=== PATIENT | female | born 1975 | race Caucasian/White ===

== ENCOUNTER 2023-06-25 10:43 | Outpatient (CLI) | payer OTHER, SELFPAY ==
--- NOTE | ~2023-06-25 | US_ITS ---
Renal-Bladder ultrasound Clinical History: Chronic kidney disease Technique: Real-time sonographic imaging of the kidneys and urinary bladder was performed. Findings: The right kidney measures 8.7 cm in length and the left kidney measures 10.7 cm. There is n o hydronephrosis or renal calculus identified. Renal cortical echogenicity is within normal limits. N o renal mass lesion is identified. The urinary bladder is moderately distended at the time of this exam. No intraluminal echoes are iden tified. No abnormal wall thickening is seen. Impression: Unremarkable ultrasound of the kidneys and urinary bladder. Reviewed, dictated and finalized at location M. Impression: Unremarkable ultrasound of the kidneys and urinary bladder.
== END 2023-06-25 10:44 ==
LOC: GOSHIMG 10:45
PROVIDERS: PCP Family Medicine; Visit Provider Family Medicine
DX: N18.30 Chronic kidney disease, stage 3 unspecified (principal)
CPT/HCPCS: 76775

== ENCOUNTER → 2023-08-28 08:23 | Outpatient (REF) | payer OTHER, SELFPAY | LOC: ANHLAB 08:23 | PROVIDERS: PCP Family Medicine; Visit Provider Plastic Surgery | DX: C44.519 Basal cell carcinoma of skin of other part of trunk (principal) | CPT/HCPCS: 88305 ==

== ENCOUNTER 2024-01-23 12:26 | Outpatient (CLI) | payer OTHER, SELFPAY ==
--- NOTE | ~2024-01-23 | MM_ITS ---
EXAMINATION: MM screening dorothea BI w maddy HISTORY: Screening TECHNIQUE: Craniocaudal and mediolateral oblique 3-D tomosynthesis images were obtained and synthetic 2-D images were generated. CAD analysis was submitted and interpreted. COMPARISON: 04/19/2017 BREAST PARENCHYMAL COMPOSITION: Dense: The breasts are extremely dense, which lowers the sensitivity of mammography. FINDINGS: There is no evidence of suspicious mass, calcification, or architectural distortion to sugg est malignancy in either breast. There has been no suspicious interval change. IMPRESSION: 1. No mammographic evidence of malignancy. 2. Recommend routine screening mammography in one year. BI-RADS Category 1: Negative Reviewed, dictated and finalized at location B. [employer]
== END 2024-01-23 12:27 | disposition home or self-care (01) ==
LOC: MICIMG 12:27
PROVIDERS: PCP Family Medicine; Visit Provider Nurse Practitioner Family
DX: Z12.31 Encounter for screening mammogram for malignant neoplasm of breast (principal)
CPT/HCPCS: 77063; 77067

== ENCOUNTER 2024-12-10 00:17 | Observation (INO) | payer OTHER, SELFPAY ==
[2024-12-10] VITALS (23 sets, daily range): BP systolic 87–121; BP diastolic 53–83; PULSE 68–117; RESP 16–20; TEMP 36.3–37.3; O2SAT 96–100; BMI 24.1
--- NOTE | ~2024-12-10 | CT_ITS ---
EXAMINATION: CT abdomen pelvis w con DATE: 12/10/2024 03:06 INDICATION: Left flank pain. Urinary tract infection. Fever. TECHNIQUE: Computed tomography (CT) of the abdomen and pelvis was performed with 100 mL Omnipaque 350 intravenous contrast. Automated exposure control and iterative reconstruction technique were employed. The dose-length product was 328.61 mGy-cm. COMPARISON: CT abdomen and pelvis 12/31/2012 FINDINGS: The visualized portions of the lung bases demonstrate mild atelectasis. No pleural effusion. The heart size is normal. No pericardial effusion. The liver, gallbladder, spleen, pancreas, adrenal glands, and right kidney are normal. There is a subtle striated nephrogram of left kidney. There is urothelial thickening in left renal pelvis. These findings are consistent with pyelonephritis. There are no dilated loops of bowel. There is a large volume of stool in the colon. The appendix is normal. There are no pathologically enlarged lymph nodes. There is no free intraperitoneal fluid. There is mild thoracic and lumbar spondylosis. IMPRESSION: 1. Left-sided pyelonephritis. Reviewed, dictated and finalized at location E. DEVELOPER
--- NOTE | 2024-12-10 01:47 | ECG_ITS ---
Test Date: 2024-12-10 03:55:17 Measurements Intervals Todd Rate: 80 P: 75 FL: 144 QRS: 8 QRSD: 87 T: 43 QT: 373 QTc: 430 Interpretive Statements SINUS RHYTHM POSSIBLE LEFT ATRIAL ENLARGEMENT [-0.1mV P-WAVE IN V1/V2] SEPTAL MYOCARDIAL INFARCTION , PROBABLY OLD [40+ ms Q WAVE IN V1/V2] No previous ECG available for comparison Electronically Signed On 12-10-2024 06:38:37 FAMILY DENTIST by Misty Dominguez M.D.
--- NOTE | 2024-12-10 01:49 | ED.ABDPAIN ---
HPI - Abdominal Pain General Chief Complaint: Nausea/Vomiting/Diarrhea <Ange Bergeron APRN - Last Filed: 12/10/24 03:50> Stated Complaint: UTI, fever, n/v <Ange Bergeron APRN - Last Filed: 12/10/24 03:50> Time Seen by Provider: 12/10/24 01:18 <Ange Bergeron APRN - Last Filed: 12/10/24 03:50> History of Present Illness HPI narrative: Patient is a 49-year-old female who presents to the ER with left flank pain, emesis, chills/sweats, and a urinary tract infection that was diagnosed yesterday. She reports she was placed on Keflex, but has only taken 1 dose. Patient reports she was woken in her sleep due to chills and sweating. She reports she does not have a thermometer at home but believes she had a fever. Patient denies any hematuria, chest pain, shortness of breath. 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 <Ange Bergeron APRN - Last Filed: 12/10/24 03:50> Related Data Home Medications: Home Medications ?Medication ?Instructions ?Recorded ?Confirmed ?Last Taken ?Type spironolactone 50 mg tablet 50 mg PO DAILY 05/29/22 04/15/24 Unknown History <Ange Bergeron APRN - Last Filed: 12/10/24 03:50> Allergies/Adverse Reactions: Allergies Allergy/AdvReac Type Severity Reaction Status Date / Time No Known Allergies Allergy Verified 12/10/24 05:30 <Ange Bergeron APRN - Last Filed: 12/10/24 03:50> Review of Systems Review of Systems: All systems reviewed & are unremarkable except as noted in HPI and below <Ange Bergeron APRN - Last Filed: 12/10/24 03:50> PMFSH Past Medical History Medical History: Medical History Seroma, post-traumatic Mass of left axilla Left axillary pain History of melanoma Costochondritis Acquired deformity of left upper arm <Ange Bergeron APRN - Last Filed: 12/10/24 03:50> Surgical History Surgical History: Surgical History Hx of melanoma excision <Ange Bergeron APRN - Last Filed: 12/10/24 03:50> Family History Family History: Family History Mother Family history of neuropathy Depression Father Hypertension Grandparent Lung cancer Heart disease Cerebrovascular accident Grandparent Lung cancer Cerebrovascular accident <Ange Bergeron APRN - Last Filed: 12/10/24 03:50> Social History Social History: Social History Social History: Caffeine-daily Alcohol intake: current Alcohol use details: once monthly Substance use: never Substance use type: does not use Do You Feel Safe in your Home?: Yes Lack of Transportation: No Lack of Food: Never True Current Housing: I Have Housing Concerned About Future Housing: No Difficulty Paying Gas/Electric Bills: No Difficulty Paying for Meds: No Currently Unemployed: No Education: Master's Degree or Higher Difficulty w/ Childcare or Family Care: No <Ange Bergeron APRN - Last Filed: 12/10/24 03:50> Exam Narrative: GENERAL: Ill appearing, well-nourished, clammy and warm to the touch HEAD: Normocephalic, atraumatic. NECK: Supple. No adenopathy, no masses. RESPIRATORY: Airway patent, respirations nonlabored. Clear to auscultation bilaterally, no rales, rhonchi, wheezing. CARDIOVASCULAR: Regular rate and rhythm without murmurs, rubs, or gallops. Peripheral pulses 2+ and equal bilaterally. + CVA tenderness ABDOMINAL: Soft, left lower quadrant tenderness with palpation, nondistended, no hepatosplenomegaly. Normoactive BS. MUSCULOSKELETAL: Moves all extremities. Strength/ROM intact without gross deformities. SKIN: Hot, sweaty, normal color. No rashes. NEURO: A&O X3. Speech clear. Cranial nerves II-XII intact. No ataxic movements. PSYCHIATRIC: Appropriate mood and affect. Normal interaction. <Ange Bergeron, POLE FRAMER MACHINE - Last Filed: 12/10/24 03:50> Course Course Emergency Course: ZYCH: CT Imaging delayed via Stat Rad. Official read will occur in the morning. This will be followed by the admitting service. <Matt Cuello MD - Last Filed: 12/10/24 05:31> Vital Signs Vital signs: Vital Signs Temperature 99.2 F 12/10/24 00:33 Pulse Rate 117 H 12/10/24 00:33 Respiratory Rate 17 12/10/24 00:33 Blood Pressure 110/53 L 12/10/24 00:33 Pulse Oximetry 96 12/10/24 00:33 Oxygen Delivery Room Air 12/10/24 00:33 Temperature 98.2 F 12/10/24 02:57 Pulse Rate 82 12/10/24 05:09 Respiratory Rate 16 12/10/24 05:09 Blood Pressure 105/83 12/10/24 05:09 Pulse Oximetry 99 12/10/24 05:09 Oxygen Delivery Room Air 12/10/24 00:33 <Ange Bergeron, POLE FRAMER MACHINE - Last Filed: 12/10/24 03:50> Vital Signs Temperature 99.2 F 12/10/24 00:33 Pulse Rate 117 H 12/10/24 00:33 Respiratory Rate 17 12/10/24 00:33 Blood Pressure 110/53 L 12/10/24 00:33 Pulse Oximetry 96 12/10/24 00:33 Oxygen Delivery Room Air 12/10/24 00:33 Temperature 98.2 F 12/10/24 02:57 Pulse Rate 82 12/10/24 05:09 Respiratory Rate 16 12/10/24 05:09 Blood Pressure 105/83 12/10/24 05:09 Pulse Oximetry 99 12/10/24 05:09 Oxygen Delivery Room Air 12/10/24 00:33 <Matt Cuello MD - Last Filed: 12/10/24 05:31> MDM - Abdominal Pain MDM Narrative Medical decision making narrative: Patient is a 49-year-old female who presents to the ER with left flank pain, emesis, chills/sweats, and a urinary tract infection that was diagnosed yesterday. She reports she was placed on Keflex, but has only taken 1 dose. Patient reports she was woken in her sleep due to chills and sweating. She reports she does not have a thermometer at home but believes she had a fever. Patient denies any hematuria, chest pain, shortness of breath. She endorses a history of melanoma, basal cell carcinoma, and [place] syndrome for which she takes Duponex. Labs Ordered: CBC, CMP, lactic acid, PTT, INR, CRP, blood culture, UA, lipase Imaging Ordered: CT abdomen pelvis with contrast Medications Ordered: 2 L normal saline IV bolus, Zofran 4 mg IV, ceftriaxone IV MDM: Results of imaging and lab work shared with patient and her family. It was advised patient be admitted to the hospital for further evaluation and treatment. Patient and her family verbalized understanding and are in agreement with plan. CRITICAL CARE ADDENDUM: Indication: Rule out sepsis Time type: intermittent I provided a total of 35 minutes of critical care excluding separately billable procedures. This includes time w/ EMS, initial bedside evaluation, reviewing old records, review of testing done while under my care, discussion w/ the family, nurses, client insights consultant and guiding the patient?s care while in the emergency department. 0315- Spoke with hospitalist, Syl Maradiaga NP, who was in agreement with plan for admission pending pt's CT scan. 0330- Care signed out to Dr. Cuello pending CT scan results. <Ange Bergeron, POLE FRAMER MACHINE - Last Filed: 12/10/24 03:50> Differential Diagnosis Differential diagnosis: Likely abdominal pain, calculus of kidney, endometriosis and other (Pyelonephritis) <Ange Bergeron APRN - Last Filed: 12/10/24 03:50> Lab Data Attestation: I reviewed the patient's lab results. <Ange Bergeron APRN - Last Filed: 12/10/24 03:50> Result diagrams: 12/10/24 02:23 12/10/24 02:23 <Ange Bergeron APRN - Last Filed: 12/10/24 03:50> Labs: Lab Results 12/10/24 Range/Units 02:23 WBC 14.7 H (4.5-10.0) K/mm3 RBC 4.00 L (4.2-5.4) M/mm3 Hgb 12.7 (12.0-15.0) g/dL Hct 37.7 (37.0-47.0) % MCV 94.3 (80-100) fl MCH 31.8 (26-34) pg MCHC 33.7 (32-36) g/dl RDW 12.6 (11.5-14.5) % Plt Count 155 (150-375) k/mm3 MPV 11.8 H (7.4-10.4) fl Immature Gran % (Auto) Not Reportable Neut % (Auto) Not Reportable Lymph % (Auto) Not Reportable [place] % (Auto) Not Reportable Eos % (Auto) Not Reportable Baso % (Auto) Not Reportable Lymph # (Auto) Not Reportable [place] # (Auto) Not Reportable Eos # (Auto) Not Reportable Baso # (Auto) Not Reportable Abs Immat Gran (auto) Not Reportable Absolute Neuts (auto) Not Reportable Absolute Nucleated RBC Not Reportable Total Counted 100 Neutrophils % (Manual) 81 H (46-73) % Band Neutrophils % 7 H (0-6) % Lymphocytes % (Manual) 3 L (18-44) % Monocytes % (Manual) 9 (3-9) % Nucleated RBC % Not Reportable Abs Neuts (Manual) 12.93 H (1.3-6.7) K/mm3 Abs Lymphs (Manual) 0.44 L (1.1-4.5) K/mm3 Abs Monocytes (Manual) 1.32 H (0.1-0.90) K/mm3 Platelet Estimate Adequate (Adequate) Schistocytes None seen PT 13.3 (11.1-14.7) Seconds INR 1.0 APTT 30.5 (22.3-36.8) Seconds Sodium 135 L (137-145) mmol/L Potassium 4.0 (3.4-5.0) mmol/L Chloride 102 (98-107) mmol/L Carbon Dioxide 27 (22-30) mmol/L Anion Gap 6 (4-12) mmol/L BUN 22 H (7-17) mg/dL Creatinine 0.96 (0.7-1.0) mg/dL Estim Creat Clear Calc 63 ml/min Estimated GFR > 60 (59 - ) Glucose 109 (65-110) mg/dL Lactic Acid 0.7 (0.7-2.0) mmol/L Calcium 8.7 (8.4-10.2) mg/dL Total Bilirubin 1.0 (0.2-1.3) mg/dL AST 37 H (14-36) U/L ALT 34 (6-35) U/L Alkaline Phosphatase 42 (38-126) U/L C-Reactive Protein 5.6 H (<1.0) mg/dL Total Protein 6.9 (6.3-8.2) g/dL Albumin 4.0 (3.5-5.1) g/dL Lipase 82 (23-300) U/L Urine Color Yellow (Yellow) Urine Appearance Cloudy H (Clear) Urine pH 5.5 (5.0-9.0) Ur Specific [place] 1.019 (1.001-1.035) Urine Protein 1+ H (Negative) mg/dL Urine Glucose (UA) Negative (Negative) mg/dL Urine Ketones Negative (Negative) mg/dL Ur Blood (Man) 2+ H (Negative) Urine Nitrate Negative (Negative) Urine Bilirubin Negative (Negative) Urine Urobilinogen 1.0 (<2.0) mg/dL Leukocyte Esterase Rfl 3+ H (Negative) MIKE/UL Urine RBC 11-20 H (0-2) /hpf Urine WBC >100 H (0-3) /hpf Ur Squamous Epith Cells Moderate (Few) /hpf Urine Bacteria 1+ H /hpf Urine Casts 0-2 <Ange Bergeron, POLE FRAMER MACHINE - Last Filed: 12/10/24 03:50> Lab Results 12/10/24 Range/Units 02:23 WBC 14.7 H (4.5-10.0) K/mm3 RBC 4.00 L (4.2-5.4) M/mm3 Hgb 12.7 (12.0-15.0) g/dL Hct 37.7 (37.0-47.0) % MCV 94.3 (80-100) fl MCH 31.8 (26-34) pg MCHC 33.7 (32-36) g/dl RDW 12.6 (11.5-14.5) % Plt Count 155 (150-375) k/mm3 MPV 11.8 H (7.4-10.4) fl Immature Gran % (Auto) Not Reportable Neut % (Auto) Not Reportable Lymph % (Auto) Not Reportable [place] % (Auto) Not Reportable Eos % (Auto) Not Reportable Baso % (Auto) Not Reportable Lymph # (Auto) Not Reportable [place] # (Auto) Not Reportable Eos # (Auto) Not Reportable Baso # (Auto) Not Reportable Abs Immat Gran (auto) Not Reportable Absolute Neuts (auto) Not Reportable Absolute Nucleated RBC Not Reportable Total Counted 100 Neutrophils % (Manual) 81 H (46-73) % Band Neutrophils % 7 H (0-6) % Lymphocytes % (Manual) 3 L (18-44) % Monocytes % (Manual) 9 (3-9) % Nucleated RBC % Not Reportable Abs Neuts (Manual) 12.93 H (1.3-6.7) K/mm3 Abs Lymphs (Manual) 0.44 L (1.1-4.5) K/mm3 Abs Monocytes (Manual) 1.32 H (0.1-0.90) K/mm3 Platelet Estimate Adequate (Adequate) Schistocytes None seen PT 13.3 (11.1-14.7) Seconds INR 1.0 APTT 30.5 (22.3-36.8) Seconds Sodium 135 L (137-145) mmol/L Potassium 4.0 (3.4-5.0) mmol/L Chloride 102 (98-107) mmol/L Carbon Dioxide 27 (22-30) mmol/L Anion Gap 6 (4-12) mmol/L BUN 22 H (7-17) mg/dL Creatinine 0.96 (0.7-1.0) mg/dL Estim Creat Clear Calc 63 ml/min Estimated GFR > 60 (59 - ) Glucose 109 (65-110) mg/dL Lactic Acid 0.7 (0.7-2.0) mmol/L Calcium 8.7 (8.4-10.2) mg/dL Total Bilirubin 1.0 (0.2-1.3) mg/dL AST 37 H (14-36) U/L ALT 34 (6-35) U/L Alkaline Phosphatase 42 (38-126) U/L C-Reactive Protein 5.6 H (<1.0) mg/dL Total Protein 6.9 (6.3-8.2) g/dL Albumin 4.0 (3.5-5.1) g/dL Lipase 82 (23-300) U/L Urine Color Yellow (Yellow) Urine Appearance Cloudy H (Clear) Urine pH 5.5 (5.0-9.0) Ur Specific [place] 1.019 (1.001-1.035) Urine Protein 1+ H (Negative) mg/dL Urine Glucose (UA) Negative (Negative) mg/dL Urine Ketones Negative (Negative) mg/dL Ur Blood (Man) 2+ H (Negative) Urine Nitrate Negative (Negative) Urine Bilirubin Negative (Negative) Urine Urobilinogen 1.0 (<2.0) mg/dL Leukocyte Esterase Rfl 3+ H (Negative) MIKE/UL Urine RBC 11-20 H (0-2) /hpf Urine WBC >100 H (0-3) /hpf Ur Squamous Epith Cells Moderate (Few) /hpf Urine Bacteria 1+ H /hpf Urine Casts 0-2 <Matt Cuello MD - Last Filed: 12/10/24 05:31> Discharge Plan Discharge Clinical Impression: Pyelonephritis, Urinary tract infection <Ange Bergeron APRN - Last Filed: 12/10/24 03:50> Patient Disposition: Still a Patient <Ange eBrgeron APRN - Last Filed: 12/10/24 03:50> Condition: Stable <Ange Bergeron APRN - Last Filed: 12/10/24 03:50>
[2024-12-10 02:33] LABS: Hematocrit 37.7 % (37.0-47.0); Hemoglobin 12.7 g/dL (12.0-15.0); Mean Corpuscular HGB Conc 33.7 g/dl (32-36); Mean Corpuscular Hemoglobin 31.8 pg (26-34); Mean Corpuscular Volume 94.3 fl (80-100); Platelet Count Result 155 k/mm3 (150-375); Red Blood Count 4.00 M/mm3 (4.2-5.4); White Blood Count 14.7 K/mm3 (4.5-10.0)
[2024-12-10] MEDS: SODIUM CHLORIDE 0.9% IV 1,000 ML 999 ML IV CONT ×3 (02:38→03:50)
[2024-12-10] MEDS: ONDANSETRON INJ 4 MG/2 ML VIAL IV PUSH (02:38)
[2024-12-10 02:39] LABS: Add Urine Microscopic? YES; Appearance Urine Cloudy (Clear); Glucose Urine UA Negative (Negative); Leukocyte Esterase Ur 3+ LEU/UL (Negative); Nitrate Urine Negative (Negative); Non Pathogenic Casts 0-2; Specific Grav Ur 1.019 (1.001-1.035)
[2024-12-10 02:41] LABS: Alanine Aminotransferase 34 U/L (6-35); Albumin Level 4.0 g/dL (3.5-5.1); Alkaline Phosphatase 42 U/L (38-126); Anion Gap 6 mmol/L (4-12); Aspartate Amino Transferase 37 U/L (14-36); Bilirubin,Total 1.0 mg/dL (0.2-1.3); Blood Urea Nitrogen 22 mg/dL (7-17); Calcium 8.7 mg/dL (8.4-10.2); Carbon Dioxide 27 mmol/L (22-30); Chloride 102 mmol/L (98-107); Estimated CRCL calculation 63 ml/min; Estimated Glomerular Filt Rate > 60; Glucose 109 mg/dL (65-110); Lipase 82 U/L (23-300); Potassium 4.0 mmol/L (3.4-5.0); Sodium 135 mmol/L (137-145); Total Protein 6.9 g/dL (6.3-8.2)
[2024-12-10 02:58] LABS: Band Neutrophils Percent 7 % (0-6); Lymphocytes Absolute Manual 0.44 K/mm3 (1.1-4.5); Lymphocytes Percent Manual 3 % (18-44); Total Cells Counted 100
[2024-12-10 02:59] LABS: Monocytes Absolute Manual 1.32 K/mm3 (0.1-0.90); Monocytes Percent Manual 9 % (3-9); Neutrophils Absolute Manual 12.93 K/mm3 (1.3-6.7); Neutrophils Percent Manual 81 % (46-73); Schistocytes None Seen
[2024-12-10 03:07] LABS: CRP 5.6 mg/dL (<1.0)
[2024-12-10 03:17] LABS: INR 1.0; Prothrombin Time 13.3 Seconds (11.1-14.7)
[2024-12-10 03:18] LABS: Partial Thromboplastin Time 30.5 Seconds (22.3-36.8)
[2024-12-10] MEDS: cefTRIAXone 1 GM in SODIUM CHLORIDE 0.9% IV 50 ML 100 ML IVPB ×2 (03:45→17:41)
[2024-12-10] MEDS: SODIUM CHLORIDE 0.9% IV 200 ML 999 ML IV CONT (05:16)
--- NOTE | 2024-12-10 06:23 | P.HP_ITS ---
H&P: HPI History of Present Illness Date/Time: 12/10/24 06:23 Chief Complaint: Nausea vomiting diarrhea. Narrative: This is a 49-year-old female patient to came with left flank pain, chills, sweats, emesis and a urinary tract infection that was diagnosed a day before. The patient stated she was treated with Keflex been only was able to take 1 pill so far. The patient was awakened with chills and sweating as well as the left flank pain. She believes that she developed a fever. She denies any shortness of breath or hematuria. She has a history of Garcia syndrome of which he takes 2 Duponex. Her temperature was 99.2? at its highest. Blood pressure is soft at 105/83. Her pulse was 82. Her white count was noted to be 14.7. Her CRP was 5.6. She does have some CVA tenderness. Her urine was cloudy 1+ urine protein with 2+ blood, 3+ leukocyte esterase, rbc's 11-20, urine bacteria 1+, urine wbc's greater than 100. CT of the abdomen and pelvis with contrast was read as mild soft tissue stranding is seen surrounding left kidney with mild wall thickening of the left renal pelvis and ureter concerning for underlying infectious process without evidence of obstruction or stone. Severe colonic sto ol burden without evidence of obstruction. The patient was started on Rocephin. The patient is being admitted to observation status on the date of service of 12/10/2024 Review of Systems Constitutional: Constitutional: Reports as per HPI and Reports no additional constitutional complaints Eyes: Eyes: Reports as per HPI and Reports no additional eye complaints ENT: Reports no additional ear, nose, mouth, and throat complaints and Reports Normal hearing present Cardiovascular: Cardiovascular: Reports no additional cardiovascular complaints Respiratory: Respiratory: Reports as per HPI and Reports no additional respiratory complaints Gastrointestinal: Gastrointestinal: Reports as per HPI and Reports no additional gastrointestinal complaints Genitourinary: Genitourinary: Reports no additional female genitourinary complaints Musculoskeletal: Musculoskeletal: Reports no additional musculoskeletal complaints Integumentary/Breasts: Skin/Breast: Reports system reviewed and no additional complaints, except as docu Neurologic: Reports no additional neurologic complaints and Reports Normal hearing present Psychiatric: Psychiatric: Reports no additional psychiatric complaints and Reports as per HPI Hematologic/Lymphatic: Hematologic/Lymphatic: Reports no additional hematologic/lymphatic complaints Allergic/Immunologic: Allergic/Immunologic: Reports no additional allergic/immunologic complaints [facility], [facility] Past Medical History Medical History (Updated 12/10/24 @ 06:35 by Syl Maradiaga APRN) Adult acne Garcia's disease Seroma, post-traumatic Mass of left axilla Left axillary pain History of melanoma Costochondritis Acquired deformity of left upper arm Surgical History Surgical History Hx of melanoma excision Family History Family History Mother Depression Family history of neuropathy Father Hypertension History of quadruple bypass Grandparent Heart disease Lung cancer Cerebrovascular accident Grandparent Lung cancer Cerebrovascular accident Social History Social History (Updated 12/10/24 @ 06:30 by Syl Maradiaga APRN) Social History: Caffeine-daily. The patient is to worsen has 1 child. 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 Code status full code Smoking status: Never smoker Alcohol intake: never Alcohol use details: once monthly Substance use: never Substance use type: does not use Do You Feel Safe in your Home?: Yes Lack of Transportation: No Lack of Food: Never True Current Housing: I Have Housing Concerned About Future Housing: No Difficulty Paying Gas/Electric Bills: No Difficulty Paying for Meds: No Currently Unemployed: No Education: Master's Degree or Higher Difficulty w/ Childcare or Family Care: No Spiritual care concerns: Yes Meds Home Medications and Allergies Home Medications ?Medication ?Instructions ?Recorded ?Confirmed ?Type spironolactone 50 mg tablet 50 mg PO DAILY 05/29/22 History dupilumab 300 mg/2 mL subcutaneous 300 mg subcut .BIWE EKLY 12/10/24 12/10/24 History pen injector (Dupixent) Allergies Allergy/AdvReac Type Severity Reaction Status Date / Time No Known Allergies Allergy Verified 12/10/24 05:39 Vital Signs Vital Signs - 24 hr 12/10/24 00:33 12/10/24 01:29 12/10/24 01:30 Temperature 99.2 F Pulse Rate 117 H Respiratory Rate 17 Blood Pressure 110/53 L 106/59 L Pulse Oximetry 96 96 96 Oxygen Delivery Room Air 12/10/24 01:31 12/10/24 01:45 12/10/24 01:46 Temperature Pulse Rate Respiratory Rate Blood Pressure 121/62 Pulse Oximetry 96 96 96 Oxygen Delivery 12/10/24 02:10 12/10/24 02:15 12/10/24 02:16 Temperature Pulse Rate Respiratory Rate Blood Pressure 110/64 Pulse Oximetry 96 97 96 Oxygen Delivery 12/10/24 02:30 12/10/24 02:31 12/10/24 02:45 Temperature Pulse Rate Respiratory Rate Blood Pressure 114/65 Pulse Oximetry 96 97 97 Oxygen Delivery 12/10/24 02:57 12/10/24 03:11 12/10/24 03:12 Temperature 98.2 F Pulse Rate Respiratory Rate Blood Pressure 103/57 L Pulse Oximetry 98 98 Oxygen Delivery 12/10/24 03:15 12/10/24 03:30 12/10/24 03:45 Temperature Pulse Rate Respiratory Rate Blood Pressure Pulse Oximetry 98 99 100 Oxygen Delivery 12/10/24 03:46 12/10/24 05:09 Temperature Pulse Rate 82 Respiratory Rate 16 Blood Pressure 103/55 L 105/83 Pulse Oximetry 98 99 Oxygen Delivery Exam Const: General: cooperative, healthy appearing, comfortable, no acute distress, well developed, awake, Physically active, average body habitus and well nourished Nutritional Appearance: average body habitus and well nourished Orientation/consciousness: oriented to person, oriented to place, oriented to time and patient oriented x3 Limitations: no limitations HENMT: Head: normal to inspection, No palpable skull fracture present, normocephalic, atraumatic and abrasion Ears: hearing grossly normal bilaterally Eyes: General: appearance normal, both eyes and all related structures Alignment and Position: alignment normal Periorbital: periorbital findings normal Eyelids: eyelids normal Neck: Neck: normal visual inspection, full ROM and no lymphadenopathy Chest: Chest palpation & inspection: normal inspection of the chest Resp: Effort & Inspection: normal respiratory effort Cardio: Palpation: normal PMI Rate: regular rate Rhythm: regular rhythm Heart sounds: S1 normal heart sound present and S2 normal heart sound present Peripheral pulses: Peripheral pulses 2+ throughout GI: Inspection: normal to inspection Auscultation: normal bowel sounds Rectal Exam: deferred Back/Spine/Pelvis: Cervical Spine: cervical ROM normal Other: Left CVA tenderness Skin: General skin exam: normal color Lesions: no lesions Rashes: no rashes Trauma: no lacerations or abrasions Wounds: no wounds Hair: normal Nails: normal Neuro: General: oriented to person, oriented to place, oriented to time and patient oriented x3 Cognition (Neuro): normal cognition Speech: normal speech Gait exam (Neuro): Normal gait present Motor exam (neuro): 5/5 motor strength present throughout Sensory Exam: normal sensation Extrem: General: normal to inspection Right upper extremity: normal to inspection and shoulder/upper arm Left upper extremity: normal to inspection and shoulder/upper arm Right lower extremity: normal to inspection Left lower extremity: normal to inspection Psych: Appearance: grossly normal Mental Status: mental status grossly normal Speech and movement: Normal speech and movement present Affect: normal affect Attitude: cooperative Thought process: Normal thought process present Thought content: Yes Normal thought content present Insight: Good insight present (Psych) Judgement: Good judgement present (Psych) H&P: Results Labs Labs: Short CBC 12/10/24 Range/Units 02:23 WBC 14.7 H (4.5-10.0) K/mm3 Hgb 12.7 (12.0-15.0) g/dL Hct 37.7 (37.0-47.0) % Plt Count 155 (150-375) k/mm3 BMP 12/10/24 02:23 Sodium 135 L Potassium 4.0 Chloride 102 Carbon Dioxide 27 BUN 22 H Creatinine 0.96 Glucose 109 Calcium 8.7 Liver Function 12/10/24 Range/Units 02:23 Total Bilirubin 1.0 (0.2-1.3) mg/dL AST 37 H (14-36) U/L ALT 34 (6-35) U/L Alkaline Phosphatase 42 (38-126) U/L Albumin 4.0 (3.5-5.1) g/dL Urine 12/10/24 Range/Units 02:23 Urine Color Yellow (Yellow) Urine Appearance Cloudy H (Clear) Urine pH 5.5 (5.0-9.0) Ur Specific [place] 1.019 (1.001-1.035) Urine Protein 1+ H (Negative) mg/dL Urine Glucose (UA) Negative (Negative) mg/dL Imaging CT scan - abdomen: Radiologist's impression: Impressions Abdomen/Pelvis CT 12/10/24 07:24 IMPRESSION: 1. Left-sided pyelonephritis. Assessment and Plan Assessment and plan (1) Pyelonephritis: Code(s): N12 - Tubulo-interstitial nephritis, not specified as acute or chronic Status: Acute Assessment and Plan: -the patient does have left flank pain with CVA tenderness. -CT of the abdomen is highly suggestive of pyelonephritis. The patient stated that this is her 1st UTI. She does not have recurrent UTIs and should be susceptible to the usual antibiotics. -patient was started on Rocephin. - Her urine was cloudy 1+ urine protein with 2+ blood, 3+ leukocyte esterase, rbc's 11-20, urine bacteria 1+, urine wbc's greater than 100 -urine and blood cultures are pending. -highest reported temperature was 99.2?. -on her CBC her white count was noted to be 14.7. -daily CBC (2) Adult acne: Code(s): L70.9 - Acne, unspecified Status: Acute Assessment and Plan: -patient's Aldactone is currently on hold due to low blood pressure. 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 Quality VTE Prophylaxis VTE prophylaxis: pharmacologic ordered
--- NOTE | 2024-12-10 16:34 | P.PNIM_ITS ---
Progress Note: A&P Assessment and Plan (1) Pyelonephritis: Code(s): N12 - Tubulo-interstitial nephritis, not specified as acute or chronic Status: Acute Assessment and Plan: -the patient does have left flank pain with CVA tenderness. -CT of the abdomen is highly suggestive of pyelonephritis. The patient stated that this is her 1st UTI. She does not have recurrent UTIs and should be susceptible to the usual antibiotics. -patient was started on Rocephin. - Her urine was cloudy 1+ urine protein with 2+ blood, 3+ leukocyte esterase, rbc's 11-20, urine bacteria 1+, urine wbc's greater than 100 -urine and blood cultures are pending. -highest reported temperature was 99.2?. -on her CBC her white count was noted to be 14.7. -daily CBC (2) Adult acne: Code(s): L70.9 - Acne, unspecified Status: Acute Assessment and Plan: -patient's Aldactone is currently on hold due to low blood pressure. 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 Plan patient presented fever, dysuria and frequency for urination, her urine is strongly positive for UTI, and suspect patient has pyelonephritis, will increase ceftriaxone to 2g q daily, follow up on urine culture and further recommendation to follow. Subjective Date/time seen: 12/10/24 16:34 Interval history: Nausea vomiting diarrhea. Narrative: This is a 49-year-old female patient to came with left flank pain, chills, sweats, emesis and a urinary tract infection that was diagnosed a day before. The patient stated she was treated with Keflex been only was able to take 1 pill so far. The patient was awakened with chills and sweating as well as the left flank pain. She believes that she developed a fever. She denies any shortness of breath or hematuria. She has a history of [place] syndrome of which he takes 2 Duponex. Her temperature was 99.2? at its highest. Blood pressure is soft at 105/83. Her pulse was 82. Her white count was noted to be 14.7. Her CRP was 5.6. She does have some CVA tenderness. Her urine was cloudy 1+ urine protein with 2+ blood, 3+ leukocyte esterase, rbc's 11-20, urine bacteria 1+, urine wbc's greater than 100. CT of the abdomen and pelvis with contrast was read as mild soft tissue stranding is seen surrounding left kidney with mild wall thickening of the left renal pelvis and ureter concerning for underlying infectious process without evidence of obstruction or stone. Severe colonic stool burden without evidence of obstruction. The patient was started on Rocephin. The patient is being admitted to observation status on the date of service of 12/10/2024 patient presented fever, dysuria and frequency for urination, her urine is strongly positive for UTI, and suspect patient has pyelonephritis, will increase ceftriaxone to 2g q daily, follow up on urine culture and further recommendation to follow. Review of Systems Constitutional: Constitutional: Reports as per HPI and Reports no additional constitutional complaints Exam Narrative: Patient is comfortable, NAD HEENT: eyes are clear and none icteric LUNGS:CTA HEART: RR S1S2 ABD: BS+, Soft and nontender Lower extremities: no edema SKIN: nonjaundiced Neuro: grossly intact. Objective Data Vital Signs Vital Signs: Vital Signs - 24 hr 12/10/24 00:33 12/10/24 01:29 12/10/24 01:30 Temperature 37.3 C Pulse Rate 117 H Respiratory Rate 17 Blood Pressure 110/53 L 106/59 L Pulse Oximetry 96 96 96 Oxygen Delivery Room Air 12/10/24 01:31 12/10/24 01:45 12/10/24 01:46 Temperature Pulse Rate Respiratory Rate Blood Pressure 121/62 Pulse Oximetry 96 96 96 Oxygen Delivery 12/10/24 02:10 12/10/24 02:15 12/10/24 02:16 Temperature Pulse Rate Respiratory Rate Blood Pressure 110/64 Pulse Oximetry 96 97 96 Oxygen Delivery 12/10/24 02:30 12/10/24 02:31 12/10/24 02:45 Temperature Pulse Rate Respiratory Rate Blood Pressure 114/65 Pulse Oximetry 96 97 97 Oxygen Delivery 12/10/24 02:57 12/10/24 03:11 12/10/24 03:12 Temperature 36.8 C Pulse Rate Respiratory Rate Blood Pressure 103/57 L Pulse Oximetry 98 98 Oxygen Delivery 12/10/24 03:15 12/10/24 03:30 12/10/24 03:45 Temperature Pulse Rate Respiratory Rate Blood Pressure Pulse Oximetry 98 99 100 Oxygen Delivery 12/10/24 03:46 12/10/24 05:09 12/10/24 06:00 Temperature 36.3 C L Pulse Rate 82 68 Respiratory Rate 16 18 Blood Pressure 103/55 L 105/83 87/57 L Pulse Oximetry 98 99 100 Oxygen Delivery 12/10/24 14:00 Temperature 36.9 C Pulse Rate 86 Respiratory Rate 18 Blood Pressure 106/60 Pulse Oximetry 97 Oxygen Delivery Intake/Output Intake/Output: Intake & Output 12/07/24 12/08/24 12/09/24 12/10/24 22:59 23:59 23:59 23:59 Intake Total 670 Balance 670 Meds/Results Medications: Active Medications Generic Name Dose Route Start Last Admin Trade Name Freq PRN Reason Stop Dose Admin Ceftriaxone Sodium 1 gm/ 50 mls @ 100 mls/hr 12/11/24 04:00 Sodium Chloride IVPB Q24H MEL Radiology Results: ITS Impressions Abdomen/Pelvis CT 12/10/24 07:24 IMPRESSION: 1. Left-sided pyelonephritis. Labs Labs: Laboratory Results - last 24 hr 12/10/24 02:23 WBC 14.7 H RBC 4.00 L Hgb 12.7 Hct 37.7 MCV 94.3 MCH 31.8 MCHC 33.7 RDW 12.6 Plt Count 155 MPV 11.8 H Immature Gran % (Auto) Not Reportable Neut % (Auto) Not Reportable Lymph % (Auto) Not Reportable [place] % (Auto) Not Reportable Eos % (Auto) Not Reportable Baso % (Auto) Not Reportable Lymph # (Auto) Not Reportable [place] # (Auto) Not Reportable Eos # (Auto) Not Reportable Baso # (Auto) Not Reportable Abs Immat Gran (auto) Not Reportable Absolute Neuts (auto) Not Reportable Absolute Nucleated RBC Not Reportable Total Counted 100 Neutrophils % (Manual) 81 H Band Neutrophils % 7 H Lymphocytes % (Manual) 3 L Monocytes % (Manual) 9 Nucleated RBC % Not Reportable Abs Neuts (Manual) 12.93 H Abs Lymphs (Manual) 0.44 L Abs Monocytes (Manual) 1.32 H Platelet Estimate Adequate Schistocytes None seen PT 13.3 INR 1.0 APTT 30.5 Sodium 135 L Potassium 4.0 Chloride 102 Carbon Dioxide 27 Anion Gap 6 BUN 22 H Creatinine 0.96 Estim Creat Clear Calc 63 Estimated GFR > 60 Glucose 109 Lactic Acid 0.7 Calcium 8.7 Total Bilirubin 1.0 AST 37 H ALT 34 Alkaline Phosphatase 42 C-Reactive Protein 5.6 H Total Protein 6.9 Albumin 4.0 Lipase 82 Urine Color Yellow Urine Appearance Cloudy H Urine pH 5.5 Ur Specific [place] 1.019 Urine Protein 1+ H Urine Glucose (UA) Negative Urine Ketones Negative Ur Blood (Man) 2+ H Urine Nitrate Negative Urine Bilirubin Negative Urine Urobilinogen 1.0 Leukocyte Esterase Rfl 3+ H Urine RBC 11-20 H Urine WBC >100 H Ur Squamous Epith Cells Moderate Urine Bacteria 1+ H Urine Casts 0-2
[2024-12-10] MEDS: ACETAMINOPHEN 325 MG TABLET 650 MG PO (18:07)
[2024-12-11 05:57] VITALS: BP 101/60; PULSE 82; RESP 20; TEMP 36.7; O2SAT 97
[2024-12-11 06:05] LABS: Hematocrit 41.0 % (37.0-47.0); Hemoglobin 13.1 g/dL (12.0-15.0); Mean Corpuscular HGB Conc 32.0 g/dl (32-36); Mean Corpuscular Hemoglobin 31.6 pg (26-34); Mean Corpuscular Volume 98.8 fl (80-100); Platelet Count Result 174 k/mm3 (150-375); Red Blood Count 4.15 M/mm3 (4.2-5.4); White Blood Count 8.9 K/mm3 (4.5-10.0)
[2024-12-11 06:24] LABS: Anion Gap 2 mmol/L (4-12); Blood Urea Nitrogen 16 mg/dL (7-17); Calcium 8.8 mg/dL (8.4-10.2); Carbon Dioxide 32 mmol/L (22-30); Chloride 103 mmol/L (98-107); Estimated CRCL calculation 68 ml/min; Estimated Glomerular Filt Rate > 60; Glucose 90 mg/dL (65-110); Magnesium 2.0 mg/dL (1.6-2.3); Potassium 4.3 mmol/L (3.4-5.0); Sodium 137 mmol/L (137-145)
[2024-12-11] MEDS: ACETAMINOPHEN 325 MG TABLET 650 MG PO (09:27)
[2024-12-11] MEDS: cefTRIAXone 2 GM in SODIUM CHLORIDE 0.9% IV 100 ML 200 ML IVPB (09:27)
--- NOTE | 2024-12-11 11:13 | PM.DS ---
DS: Admitting Diagnosis Discharge Date 12/11/24 Admitting Diagnosis Nausea vomiting diarrhea. DS: Discharge Diagnosis Discharge Diagnosis (1) Pyelonephritis: Code(s): N12 - Tubulo-interstitial nephritis, not specified as acute or chronic Status: Acute Assessment and Plan: -the patient does have left flank pain with CVA tenderness. -CT of the abdomen is highly suggestive of pyelonephritis. The patient stated that this is her 1st UTI. She does not have recurrent UTIs and should be susceptible to the usual antibiotics. -patient was started on Rocephin. - Her urine was cloudy 1+ urine protein with 2+ blood, 3+ leukocyte esterase, rbc's 11-20, urine bacteria 1+, urine wbc's greater than 100 -urine and blood cultures are pending. -highest reported temperature was 99.2?. -on her CBC her white count was noted to be 14.7. -daily CBC (2) Adult acne: Code(s): L70.9 - Acne, unspecified Status: Acute Assessment and Plan: -patient's Aldactone is currently on hold due to low blood pressure. 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 Plan patient presented fever, dysuria and frequency for urination, her urine is strongly positive for UTI, and suspect patient has pyelonephritis, will increase ceftriaxone to 2g q daily, follow up on urine culture and further recommendation to follow. patient urine is growing E coli, sensitive to ceftriaxone, patient clinical symptoms have improved, will give today ceftriaxone 2g today and discharge patient home oral cefdinir today. DS: Summary Hospital Course Hospital Course: patient presented fever, dysuria and frequency for urination, her urine is strongly positive for UTI, and suspect patient has pyelonephritis, will increase ceftriaxone to 2g q daily, follow up on urine culture and further recommendation to follow. patient urine is growing E coli, sensitive to ceftriaxone, patient clinical symptoms have improved, will give today ceftriaxone 2g today and discharge patient home oral cefdinir today. Time Spent with Patient Time attestation: Total time spent providing and/or coordinating discharge services: Exam Narrative: Patient is comfortable, NAD HEENT: eyes are clear and none icteric LUNGS:CTA HEART: RR S1S2 ABD: BS+, Soft and nontender Lower extremities: no edema SKIN: nonjaundiced Neuro: grossly intact. DS: Data Data Completed and Pending Labs on day of discharge: Labs from last 24 hours 12/11/24 05:46 WBC 8.9 RBC 4.15 L Hgb 13.1 Hct 41.0 MCV 98.8 MCH 31.6 MCHC 32.0 RDW 12.8 Plt Count 174 MPV 11.9 H Sodium 137 Potassium 4.3 Chloride 103 Carbon Dioxide 32 H Anion Gap 2 L BUN 16 Creatinine 0.89 Estim Creat Clear Calc 68 Estimated GFR > 60 Glucose 90 Calcium 8.8 Magnesium 2.0 Discharge Plan Discharge Attending physician on discharge: Kevin Monk [facility] Consulting providers: Awais Epstein; Syl Maradiaga; Misty Dominguez; Myron Quarles V. Discharging Clinician: Bianca Nicholson Patient Disposition: Home Activity: as tolerated Diet: heart healthy Discharge Instructions: Patient to follow up with her primary care provider as soon as possible, patient is instructed if any symptoms redevelop to go to nearest, nearest ER Patient Instructions: Antibiotic Form Patient Language: Greenlandic Stand Alone Forms: General Discharge Information Follow-up/Referrals: Brittny Lomax PA-C [Primary Care Provider, Family Practice] Awais Epstein MD [Physician, [facility]] Discharge Medications: New cefdinir 300 mg capsule 300 mg PO Q12H Qty: 14 0RF Continued spironolactone 50 mg tablet 50 mg PO DAILY Dupixent Pen 300 mg/2 mL pen injector 300 mg SUBCUT .BIWEEKLY Patient Comments: PATIENT TAKES TWICE A MONTH Date of admission: 12/10/24 03:43 Primary Care Provider: Brittny Lomax Admitting Provider: Kevin Monk [facility] Attending physician on admission: Bianca Nicholson Condition: Stable
== END 2024-12-11 12:20 | disposition home or self-care (01) ==
LOC: ANHED 03:42 → ANH3MEDSUR 05:04
PROVIDERS: Nurse Practitioner; Admitting Provider Student in an Organized Health Care Education/Training Program; Emergency Provider Registered Nurse; PCP Student in an Organized Health Care Education/Training Program; Visit Provider Family Medicine
DX: N12 Tubulo-interstitial nephritis, not specified as acute or chronic (principal); L70.9 Acne, unspecified; L11.1 Transient acantholytic dermatosis [Grover]; N39.0 Urinary tract infection, site not specified; B96.20 Unspecified Escherichia coli [E. coli] as the cause of diseases classified elsewhere; Z85.820 Personal history of malignant melanoma of skin
CPT/HCPCS: 36415; 74177; 80048; 80053; 81001; 83605; 83690; 83735; 85025; 85027; 85610; 85730; 86140; 87040; 93005; 96365; 96374; 96375; 96376; 99285; A9270; G0378; J0696; J2405; J7030; Q9967